=== PATIENT | female | born 1990 | race Caucasian/White ===

== ENCOUNTER 2022-06-11 10:28 | Emergency (ER) | payer BC ==
[~2022-06-11] VITALS: Ht 157 cm; Wt 52.0 kg
[~2022-06-11 10:28] MED LIST: Birth Control Pill; CEFD300C3 PO; METO25TA2 PO
[2022-06-11] MEDS ORDERED: NEOM10SO8 OT (11:15)
--- NOTE | 2022-06-11 11:15 | ED EENT ---
History of Present Illness General Chief Complaint: Ear Problems Stated Complaint: BEE IN EAR Nursing Triage Note: PT PRESENTS SAYING THERE IS A BEE IN HER LT EAR Source: patient Exam Limitations: no limitations History of Present Illness Date Seen by Provider: Jun 11, 2022 Time Seen by Provider: 11:00 Initial Comments Patient is a 31-year-old female who presents to the emergency department today with a chief complaint of foreign body to the left ear. Patient states that she was outside playing pickle ball, it was very windy outside and she noticed that an insect flew into her ear. She realized it was a been on it stung the outside portion of her ear and her reflex was to reach up and touch her ear, the B went all the way into her ear canal. She presented in extreme pain. She has never had any surgeries on her ear before. No recent illnesses. She is not a diabetic. All other review of systems reviewed and negative except as stated. Timing/Duration: abrupt Location: ear (L) Prearrival Treatment: no prearrival treatment Associated Symptoms: other (Your pain) Allergies and Home Medications Allergies Coded Allergies: No Known Drug Allergies (Unverified , 09/24/13) Patient Home Medication List Home Medication List Reviewed: Yes Review of Systems Review of Systems Constitutional: see HPI Eyes: No Symptoms Reported Ears: Pain (Left ear) Respiratory: no symptoms reported Cardiovascular: no symptoms reported Gastrointestinal: no symptoms reported Neurological: No Symptoms Reported All Other Systems Reviewed Negative Unless Noted: Yes Past Psrcqgv-Mhyrpg-Szoldg Hx Patient Social History Tobacco Use?: No Substance use?: No Alcohol Use?: Yes Alcohol Frequency: Once in a while Immunizations Up To Date PED Vaccines UTD: No Past Medical History Reproductive Disorders: No Sexually Transmitted Disease: No HIV/AIDS: No Adverse Reaction/Blood Tranf: No Family Medical History Patient reports no known family medical history. Physical Exam Vital Signs Vital Signs - First Documented 06/11/22 10:35 Temp 36.6 Pulse 102 Resp 18 B/P (MAP) 135/90 (105) Pulse Ox 100 O2 Delivery Room Air Height, Weight, BMI Height: 5'2.00" Weight: 100lbs. oz. [id number]; 21.00 BMI Method:Stated General Appearance: WD/WN, no apparent distress Eyes: bilateral eye normal inspection, bilateral eye PERRL, bilateral eye EOMI Ears: left ear TM dull, left ear TM bulging; bilateral ear other (Left auricle is bright red a little swollen. She has obvious blood at the meatus of the end internal auditory canal. The canal itself is quite abraded with fresh blood. The TM is slightly bulging and hyperemic. No purulence or effusion is noted.) Nose: normal inspection Respiratory: no respiratory distress, no accessory muscle use Neurologic/Psychiatric: alert, normal mood/affect, oriented x 3 Skin: normal color, warm/dry Progress/Results/Core Measures Results/Orders Vital Signs/I&O 06/11/22 10:35 Temp 36.6 Pulse 102 Resp 18 B/P (MAP) 135/90 (105) Pulse Ox 100 O2 Delivery Room Air Blood Pressure Mean: 105 Progress Progress Note : Time: 11:11 Progress Note When patient arrived into the room suction was immediately connected and used to attempt to aspirate the foreign body from the left ear. An intact Bee was removed. Looking at the canal after aspiration no foreign body/insect parts are visible in the canal. Patient feels much better after removal. I discussed with her antibiotic drops over the course of the next 7 days. Return precautions provided. Tylenol ibuprofen as needed for discomfort. All questions are sought and answered Departure Impression Primary Impression: Foreign body in left ear Qualified Codes: T16.2XXA - Foreign body in left ear, initial encounter Disposition: 01 HOME, SELF-CARE Condition: Improved Departure-Patient Inst. Decision time for Depature: 11:12 Referrals: DAI HERNANDES MD (PCP/Family) Primary Care Physician Patient Instructions: How to Use Ear Drops Add. Discharge Instructions: Use the Cortisporin drops to the left ear 4 times daily for 7 days. Dxqi-knl-kxwkapc ibuprofen 2 tablets which is 400 mg every 6 hours with food as needed for pain. You can also take panf-eqm-aydxoht Tylenol 2 extra strength tablets every 6 hours as needed for pain. If you develop worsening ear pain, swelling or drainage especially with fever over 101 please come back to the emergency department for reevaluation. Use a cottonball with a little Vaseline on the and to plug your ear when showering. Try to avoid getting water in your left ear canal for the week while you are using the antibiotic eardrops. Follow-up with primary care doctor as needed. Scripts Neomycin/Polymyxin B Sulf/Hc (Rcwirgle-Vvqrqpvnf-Mp Ear Soln) 3.5 Mg/Ml-10,000 Unit/Ml-1 % Solution 4 DROPS OT QID for 7 Days, #10 ML Prov: NANCY MARTINEZ MD 06/11/22 NANCY MARTINEZ MD Jun 11, 2022 11:15
[2022-06-11 11:19] VITALS: BP 135/90
== END 2022-06-11 11:19 | disposition home or self-care (01) ==
LOC: EDUNIT# 10:28 → ER 10:30
DX: T16.2XXA Foreign body in left ear, initial encounter (principal); W45.8XXA Other foreign body or object entering through skin, initial encounter; Y93.73 Activity, racquet and hand sports
CPT/HCPCS: 99282